=== PATIENT | female | born 2005 | race Caucasian/White ===

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

== ENCOUNTER → 2023-12-08 | Outpatient (REF) | payer OTHER ==
[2023-12-09 16:30] LABS: GC DNA AMPLIFICATION NEGATIVE (NEGATIVE)
== END ==
LOC: M LAB REF 13:05
PROVIDERS: ATTEND Pediatrics
DX: Z00.00 Encounter for general adult medical examination without abnormal findings (principal)